=== PATIENT | male | born 1990 | race Caucasian/White ===

== ENCOUNTER 2018-01-28 14:34 | Emergency (ER) | payer OTHER ==
[~2018-01-28] VITALS: Ht 188 cm; Wt 68.0 kg
[~2018-01-28 14:34] MED LIST: CLONIDINE HCL0.2 M1 PO; NEURONTIN800 M2 PO; TEGRETOL200 M1 PO; TRAZODONE HCL100 M1 PO
[2018-01-28 14:44] VITALS: BP 134/81
[2018-01-28 15:21] LABS: ABSOLUTE BASOPHIL COUNT 0 /CUMM (0.0-0.2); ABSOLUTE EOSINOPHIL COUNT 0.1 /CUMM (0.0-0.7); ABSOLUTE GRANULOCYTE CT 3.3 /CUMM (1.4-6.5); ABSOLUTE LYMPH COUNT 1.2 /CUMM (1.2-3.4); ABSOLUTE MONOCYTE COUNT 0.3 /CUMM (0.10-0.60); BASOPHIL % 0.5 % (0.0-2.0); EOSINOPHIL % 2.6 % (0-5); GRANULOCYTE % 67.1 % (42.2-75.2); MEAN CORPUSCULAR HGB 21.9 PG (27.0-31.0); MEAN CORPUSCULAR HGB CONC 31.7 G/DL (33.0-37.0); MEAN PLATELET VOLUME 8.5 FL (7.4-10.4); PLATELET COUNT 378 /CUMM (130-400); RBC DISTRIBUTION WIDTH 15.2 % (11.5-14.5); RED BLOOD CELL CT 4.33 /CUMM (4.70-6.10); WHITE BLOOD CELL COUNT 4.9 /CUMM (4.8-10.8)
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
[2018-01-28 15:31] LABS: PT 13.5 SEC (9.4-12.5); PTT 26 SEC (25-37)
[2018-01-28 15:33] LABS: MEAN CORPUSCULAR VOLUME 69.3 FL (80.0-94.0)
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
[2018-01-28] MEDS ORDERED: DOXYCYCLINE HY100 M2 PO (17:34)
[2018-01-28] MEDS ORDERED: ULTRAM50 M1 PO (17:34)
== END 2018-01-28 18:43 ==
LOC: ERH 14:34
PROVIDERS: Physician Assistant Medical
DX: S81.812A Laceration without foreign body, left lower leg, initial encounter (principal); S41.011A Laceration without foreign body of right shoulder, initial encounter; S43.401A Unspecified sprain of right shoulder joint, initial encounter; S80.12XA Contusion of left lower leg, initial encounter; V86.55XA Driver of 3- or 4- wheeled all-terrain vehicle (ATV) injured in nontraffic accident, initial encounter
CPT/HCPCS: 36415; 73030-RT; 73590-LT; 74176; 96365; 96375; J0131